=== PATIENT | female | born 1940 | race Hispanic/Latino ===

== ENCOUNTER → 2025-10-26 | Outpatient (CLI) | payer MEDICARE, MEDICAID ==
[~2025-10-26] MED LIST: IOHEXOL 350 MG/ML 100ML INFUS..BTL IV ONE
--- NOTE | 2025-10-27 19:03 | CARDIOLOGY ---
RAD REPORT: CORNARY CT ANGIO RADIOLOGY REPORT: CORONARY CT ANGIOGRAPHY DATE: Oct 27, 2025 QUALITY: Excellent CLINICAL HISTORY AND INDICATION: [chest pain ] TECHNIQUE: After obtaining a preliminary concession attendant image, contrast imaging performed on an [employer] [id number] scanner. A dedicated, limited window, coronary imaging protocol was used, with single breath-hold, retrospective ECG gating, and automated arrhythmia rejection. 100 cc of low osmolar contrast agent: Omnipaque 350 was delivered via a 18-gauge IV catheter in the right antecubital fossa, using a power injector and followed by 60 cc of normal saline bolus as a chaser. Collimated images were reformatted at 0.5 mm intervals, and sent to an offline independent workstation for interpretation, using 3D anatomic reconstructions: Curved multiplanar reconstructions, maximum intensity projections, and multiplanar imaging. 20 mg IV metoprolol was administered prior to scanning. 0.8 mg SL nitroglycerin was given. CORONARY ARTERY DESCRIPTIONS: The coronary arteries arise in normal position. Left main coronary artery: Normal caliber vessel that bifurcates into the LAD and LCx. No stenosis. Left anterior descending coronary artery: Normal caliber vessel and gives rise to diagonal and septal branches. There is calcified plaque in the proximal LAD with 50-60% stenosis. Left circumflex coronary artery: Normal caliber, nondominant and gives rise to two OM branches. No stenosis. Right coronary artery: Large, dominant vessel giving rise to the PL and PDA branches. There is calcified plaque in the proximal RCA with 70-80% stenosis. CAD-RADs: 4A, severe stenosis. Thoracic Aorta: Normal diameter. Whitney Mead MD Cardiovascular Disease [facility] WHITNEY MEAD MD Oct 27, 2025 19:03
== END | disposition home or self-care (01) ==
LOC: RAH 08:30
PROVIDERS: ATTEND Student in an Organized Health Care Education/Training Program
DX: I25.10 Atherosclerotic heart disease of native coronary artery without angina pectoris (principal); R07.9 Chest pain, unspecified; R06.09 Other forms of dyspnea
CPT/HCPCS: 75574; J3490; Q9967